=== PATIENT | male | born 1940 | race Caucasian/White ===

== ENCOUNTER 2020-04-03 16:49 | Inpatient (IN) | payer MEDICARE, OTHER ==
[~2020-04-03] VITALS: Ht 185.4 cm; Wt 89.2 kg
[~2020-04-03 16:49] MED LIST: (None)20 M1 PO; ACET325UDC PO; ALBU90OI INH; BUDE6HFA; CEPH250SUA PT; FLUC100 PO; Guaifenesin Wit10 ML PO; HYDCHL25 PO; HYDR-86 PO; IBUP400 PO; IBUPROFEN200 MG PO; LAVAP17G PO; LEVFLO500 PO; LEVO750 PO; Mucinex600 MG PO; NICO14TP TOP; NYST100000 PO; NYST100SU MT; OXYC1L; Prednisone20 MG PO; RANI150 PO; Ventolin Soln3 ML INH; Zithromax250 MG PO
[2020-04-03 17:41] LABS: BASOPHILS ABSOLUTE AUTO 0.04 K/mm3 (0.00-0.23); BASOPHILS PERCENT AUTO 0 % (0-2); EOSINOPHILS PERCENT AUTO 0 % (0-6); Hematocrit 40.4 % (37.0-53.0); Hemoglobin 12.4 g/dL (13.5-17.5); IMMATURE GRAN ABSOLUTE AUTO 0.16 K/mm3 (0.00-0.10); IMMATURE GRAN PERCENT AUTO 1 % (0-1); LYMPHOCYTES ABSOLUTE AUTO 1.35 K/mm3 (0.84-5.20); LYMPHOCYTES PERCENT AUTO 6 % (21-46); MONOCYTES ABSOLUTE AUTO 1.36 K/mm3 (0.16-1.47); MONOCYTES PERCENT AUTO 6 % (4-13); Mean Corpuscular HGB 30.2 pg (26.0-34.0); Mean Corpuscular HGB Conc 30.7 g/dL (31.5-36.5); Mean Corpuscular Volume 99 fL (80-100); Mean Platelet Volume 11.4 fL (9.1-12.4); NEUTROPHILS ABSOLUTE AUTO 19.72 K/mm3 (1.96-9.15); NEUTROPHILS PERCENT AUTO 87 % (41-73); Platelet Count 324 K/mm3 (150-400); RDW Coefficient Variation 15.7 % (11.7-14.2); RDW Standard Deviation 56.9 fL (35.1-46.3); White Blood Cell Count 22.63 K/mm3 (4.00-11.30)
[2020-04-03 18:09] LABS: Alanine Aminotransfer (ALT/SGP 21 U/L (12-78); Albumin, Blood 2.1 g/dL (3.4-5.0); Albumin/Globulin Ratio 0.5 (0.8-1.8); Alk Phos 460 U/L (50-136); Anion Gap 8 mmol/L (6-16); Aspartate Aminotrans (AST/SGOT 100 U/L (12-37); Bilirubin, Total 1.1 mg/dL (0.1-1.0); Blood Urea Nitrogen 9 mg/dL (8-24); Bun/Creatinine Ratio 13.3 (12.0-20.0); CO2, Blood 27 mmol/L (21-32); Calcium, Blood 8.3 mg/dL (8.5-10.1); Chloride, Blood 109 mmol/L (98-108); Creatinine, Blood 0.68 mg/dL (0.60-1.20); Globulin, Blood 4.2 g/dL (2.2-4.0); Glomerular Filtration Rate >60 (60-); Glucose, Blood 106 mg/dL (70-99); Potassium, Blood 3.4 mmol/L (3.5-5.5); Sodium, Blood 144 mmol/L (136-145); Total Protein, Blood 6.3 g/dL (6.4-8.2)
[2020-04-03 18:48] LABS: International Normalized Ratio 1.28; Prothrombin Time Results 13.5 Sec (9.7-11.5)
[2020-04-03] MEDS ORDERED: BUDESONIDE-FO10.2 G2 INH (18:56)
--- NOTE | 2020-04-03 22:00 | NUR ---
PT ADMITTED TO ROOM ICU 15 AT 2100. PT ARRIVES FROM ED. REPORT RECEIVED. PT SLIDE TRANSFERED TO BED. PT DENIES CHEST PAIN OR PRESSURE. ALERT AND ORIENTED. TRACH OS PRESENT WELL HEALED. SET PT UP WITH YAUNKEUR FOR HIM TO BE ABLE TO SELF CLEAR SECRETIONS WHEN HE COUGHS. PT DOES THIS FOR HIMSELF AT HOME. HE ALSO STATES THAT HE LIVES ALONE AT HOME, AND HAS DAUGHTER THAT COMES TO CHECK ON HIM. WILL REVIEW CHART AND PLAN OF CARE FOR THIS PT.
[2020-04-04 01:14] LABS: BASOPHILS ABSOLUTE AUTO 0.04 K/mm3 (0.00-0.23); BASOPHILS PERCENT AUTO 0 % (0-2); EOSINOPHILS PERCENT AUTO 0 % (0-6); Hematocrit 35.8 % (37.0-53.0); IMMATURE GRAN ABSOLUTE AUTO 0.09 K/mm3 (0.00-0.10); IMMATURE GRAN PERCENT AUTO 1 % (0-1); LYMPHOCYTES ABSOLUTE AUTO 2.18 K/mm3 (0.84-5.20); LYMPHOCYTES PERCENT AUTO 11 % (21-46); MONOCYTES ABSOLUTE AUTO 1.16 K/mm3 (0.16-1.47); MONOCYTES PERCENT AUTO 6 % (4-13); Mean Corpuscular HGB 30.4 pg (26.0-34.0); Mean Corpuscular HGB Conc 30.7 g/dL (31.5-36.5); Mean Corpuscular Volume 99 fL (80-100); Mean Platelet Volume 11.3 fL (9.1-12.4); NEUTROPHILS ABSOLUTE AUTO 16.01 K/mm3 (1.96-9.15); NEUTROPHILS PERCENT AUTO 82 % (41-73); Platelet Count 250 K/mm3 (150-400); RDW Coefficient Variation 15.7 % (11.7-14.2); RDW Standard Deviation 57.5 fL (35.1-46.3); Red Blood Cell Count 3.62 M/mm3 (4.30-5.90); White Blood Cell Count 19.48 K/mm3 (4.00-11.30)
[2020-04-04 01:47] LABS: Alanine Aminotransfer (ALT/SGP 16 U/L (12-78); Albumin/Globulin Ratio 0.6 (0.8-1.8); Alk Phos 322 U/L (50-136); Anion Gap 6 mmol/L (6-16); Aspartate Aminotrans (AST/SGOT 76 U/L (12-37); Bilirubin, Total 0.8 mg/dL (0.1-1.0); Blood Urea Nitrogen 12 mg/dL (8-24); Bun/Creatinine Ratio 17.6 (12.0-20.0); CO2, Blood 28 mmol/L (21-32); CPK Creatine Kinase 201 U/L (39-308); Calcium, Blood 7.5 mg/dL (8.5-10.1); Chloride, Blood 109 mmol/L (98-108); Creatinine, Blood 0.68 mg/dL (0.60-1.20); Globulin, Blood 3.3 g/dL (2.2-4.0); Glomerular Filtration Rate >60 (60-); Glucose, Blood 97 mg/dL (70-99); Potassium, Blood 3.1 mmol/L (3.5-5.5); Sodium, Blood 143 mmol/L (136-145); Total Protein, Blood 5.3 g/dL (6.4-8.2)
--- NOTE | 2020-04-04 02:17 | NUR ---
PT REMAINS IN BED. ABLE TO REST SOME. IN PROCESS OF HAVING POTASSIUM REPLACED PER IV. HAS COMPLAINED OF TENDERNESS AT IV SITE WITH POTASSIUM AND HAS NEEDED RATE SLOWED AND RUNNING CONCURRANTLY WITH NORMAL SALINE FOR COMFORT. PT HAS CHEMISTRY PANEL DONE DURING REPLETION. POTASSIUM LEVEL RETURNS AT 3.1 PT REMAINS WITH ANOTHER 20 MEQ POTASSIUM TO BE INFUSED. TROPONIN LEVEL REMAINS ELEVATED. REMAINS WITHOUT COMPLAINTS OF CHEST PAIN OR PRESSURE. WILL CONTINUE TO MONITOR PT.
--- NOTE | 2020-04-04 06:30 | NUR ---
PT ABLE TO REST DURING NIGHT. MOVES ABOUT BED ON HIS OWN. DOES NEED ASSIST AT TIMES WITH PILLOWS. PT INCONTINENT AT TIMES TO URINE AND SMEAR OF STOOL. PT STATES HE IS NOT ABLE TO TELL WHEN HE HAS GONE. PT USES HAND HELD LARYNGEAL 'VOICE BOX' TO COMMUNICATE. WILL CONTINUE TO MONITOR PT, AND WILL REPORT OFF TO ONCOMING RN.
--- NOTE | 2020-04-04 09:38 | NUR ---
ECHOCARDIOGRAM COMPLETED
[2020-04-04 10:27] LABS: CPK Creatine Kinase 222 U/L (39-308)
--- NOTE | 2020-04-04 10:45 | NUR ---
AM NOTE... ASSUMED CARE OF PT APROX 0700, PT IS A&Ox4 WITH SOME FORGETFULNESS. PT WAS ADMITTED FOR POSSIBLE SEPSIS AND NSTEMI. PT IS ON HEPARIN GTT RUNNING PER ORDERS. PT DENIES ANY CHEST PAIN/PRESSURE N/V OR SOB. PT IS ON RA WITH O2 SATS>92%. PT'S VS STABLE BUT BP ON THE SOFT SIDE IS SBP 90'S-100'S. PT HAS 3+ PITTING EDEMA TO HIS BLE. PT IS NPO FOR ANIGO THIS AM. PT HAS CHRONIC DIARRHEA WITH SOME BRIGHT CASSANDRA BLOOD NOTED IN THE COMMODE, SOME ALSO NOTED ON THE PAPER PT STATES THIS IS "NORMAL" FOR HIM. PT IS INCONT OF URINE AND STOOL. ATTENDS IN PLACE C/D/I AFTER PT WAS GIVEN BEDBATH FOR INCONT EPISODE. DR. MORENO AT THE BEDSIDE TO EVALUATE PT AND CONSENT FOR ANGIO. PT AGREEABLE TO THE PROCEDURE, CONSENT SIGNED BY PT. CALL LIGHT IN REACH WILL CONTINUE TO MONITOR.
--- NOTE | 2020-04-04 13:30 | NUR ---
[facility] CARE VISIT AND CASE CONFERENCES - Pt in room with RN when I arrived. Code status changed per after angio this am and conversation re: findings with technical aid afterwards. Update received from RN and Dr. Montilla to meet with daughters and pt this afternoon to discuss options and how pt would like to proceed. Pt is uncertain he would like any further interventions but states he will decide today either way after family conference wtih daughters and technical aid this afternoon. I had a brief visit with him only and was not able to do a full s/s assessment. Pt has longstanding cardiac hx and new NSTEMI on admission. He has declined tx for CAD, CHF in recent years. He has had multiple surgeries on his neck with old trach site noted. He communicates very well with a voice box amplifier. Planned with pt and Sasha matos, that I would check in with pt tomorrow if he remained hospitalized here. RN to update me on plan of care decided upon after /family conference.
--- NOTE | 2020-04-04 17:50 | NUR ---
SHIFT SUMMARY/TRANSFER NOTE... PT HAD ANGIO TODAY AND WAS BACK IN THE ROOM BY 1130. NO INTERVENTIONS BUT PT IS TO [facility] TRANSFER UP TO [facility]. PT'S VS HAVE BEEN STABLE T/O SHIFT. RIGHT RADIAL SITE IS STABLE, NO SWELLING BLEEDING OR HEMATOMA NOTED. TR BAND WAS REMOVED WNL AT 1600 AND TEGADERM WAS PLACED OVER THE SITE. PT'S DAUGHTERS WERE IN THE ROOM FOR BEDSIDE UPDATE FROM DR. MORENO. PT HAS NOT BEEN ABLE TO EAT ANYTHING ALL DAY PER PT IT "WON'T GO DOWN MY THROAT." THIS IS A CHRONIC PROBLEM PT IS ABLE TO TOLERATE LIQUIDS AND PUREE LIKE PUDDINGS/ICE CREAMS. PT HAS BEEN ON RA T/O SHIFT. HEPARIN GTT WAS RESTARTED AT 1600 ONCE THE TR BAND WAS REMOVED PER DR. PROCTOR'S ORDERS. PT UPDATED ON TRANSFER AND AMBULACE ARRIVAL. CALL LIGHT IN REACH WILL CONTINUE TO MONITOR UNTIL REPORT CALLED TO ESTELLE MOYA AT [facility].
== END 2020-04-04 18:50 | disposition short-term general hospital (02) | DRG 280 ==
LOC: ER 16:49 → ICUW 19:08
PROVIDERS: Emergency Medicine; ADMIT Internal Medicine
PROC: B2111ZZ Fluoroscopy of Multiple Coronary Arteries using Low Osmolar Contrast (ICD-10-PCS; principal; 2020-04-04)
DX: I21.4 Non-ST elevation (NSTEMI) myocardial infarction (principal); J18.9 Pneumonia, unspecified organism; I50.23 Acute on chronic systolic (congestive) heart failure; Z87.891 Personal history of nicotine dependence; Z90.02 Acquired absence of larynx; Z85.21 Personal history of malignant neoplasm of larynx; Z90.09 Acquired absence of other part of head and neck; E86.0 Dehydration; I95.9 Hypotension, unspecified; I44.7 Left bundle-branch block, unspecified; E87.6 Hypokalemia; M54.9 Dorsalgia, unspecified; E66.3 Overweight; Z66 Do not resuscitate; Z68.22 Body mass index [BMI] 22.0-22.9, adult
CPT/HCPCS: 36415; 71046; 76937; 80053; 82272; 82550; 83605; 83880; 84132; 84484; 85025; 85347; 85610; 85730; 87040; 93005; 93010; 93306; 93454; 93970; 96365; 96376; 99152; 99153; 99285-25; A9270-GY; C1769; C1894; J0456; J0696; J1644; J3480; J7030; J7040; J7050; P9046; Q9967; U0003